=== PATIENT | female | born 1970 | race African-American/Black ===

== ENCOUNTER 2016-08-12 21:58 | Observation (INO) ==
[2016-08-13] MEDS ORDERED: LORazepam 2 MG/1 ML VIAL IV STA (00:28)
[2016-08-13] MEDS ORDERED: ASPIRIN CHEW 81 MG TABLET PO STA (00:29)
[2016-08-13 00:30] LABS: Basophils # 0.1 10*3/uL (0.0-0.2); Basophils % 0.8 % (0.0-0.8); Eosinophils # 0.2 10*3/uL (0.0-0.87); Hematocrit 37.5 VOL% (35.7-47.0); Hemoglobin 13.4 GM/DL (12.0-16.0); Immature Granulocytes % 0.3 %; Immature Granulocytes Absolute 0.02 #; Lymphocytes # 2.1 10*3/uL (1.4-4.0); Lymphocytes % 28.4 % (21.3-54.2); Mean Corpuscular HGB Conc 35.7 GM/DL (32-36); Mean Corpuscular Hemoglobin 32 PG (27-34); Mean Corpuscular Volume 90.8 FL (87-102); Monocytes # 0.6 10*3/uL (0.11-0.8); Monocytes % 7.6 % (1.7-12.7); Neutrophils # 4.3 10*3/uL (1.4-7.4); Neutrophils % 59.9 % (38.7-73.9); Platelet Count 326 T/CUMM (130-400); Red Blood Count 4.13 MC/CUMM (3.8-5.5); Red Cell Distribution Width 11.8 % (9.3-17.3); White Blood Count 7.2 T/CUMM (4-12)
[2016-08-13] MEDS ORDERED: ASPIRIN CHEW 81 MG TABLET PO ONE (00:31)
[2016-08-13] MEDS ORDERED: LORazepam 2 MG/1 ML VIAL ONE (00:31)
[2016-08-13 00:42] LABS: Barbiturates Screen,Urine Negative (Negative); Benzodiazepines Screen,Urine Negative (Negative); Cannabinoid Screen,Urine Negative (Negative); Opiate Screen,Urine Negative (Negative); Phencyclidine Screen,Urine Negative (Negative)
[2016-08-13 00:46] LABS: Apearance,Urine CLEAR (Clear); Bacteria,Urine Occasional /HPF (Few); Bilirubin,Urine Negative (Negative); Blood, Urine Negative (Negative); Glucose,Urine (UA) Negative (Negative); Ketones,Urine Negative (Negative); Mucus,Urine Occasional /LPF (Occasional); Nitrite,Urine Negative (Negative); Protein,Urine Negative; RBC,Urine 2 /HPF (0-4); Squamous Epithelial Cell,Urine Occasional /HPF (0-10); Urine Color Yellow (Yellow); Urine Urobilinogen < 2.0 EU/DL (0.2-1.0); WBC,Urine <1 /HPF (0-6)
[2016-08-13 00:52] LABS: Blood Urea Nitrogen 11 MG/DL (7-18); Calcium 9.2 MG/DL (8.5-10.1); Glucose 149 MG/DL (74-106); Magnesium 2.2 MG/DL (1.8-2.4); Osmolality,Calculated 274.8 MOS/KG (273-304); Potassium 3.3 MMOL/L (3.5-5.1); Sodium 137 MMOL/L (136-145); Troponin I Only < 0.015 NG/ML (0.00-0.045)
--- NOTE | 2016-08-13 01:20 | Emergency Department Note ---
I, Eileen Pizarro, am scribing for, and in the presence of, Juan Wright MD 00:25 . Kyle Perez Hans, MD, personally performed the services described in this documentation, ascribed by Eileen Pizarro in my presence, and it is both accurate and complete . Arrival - Arrival Chief Complaint: Non-Specific Stated Complaint: tight chest numbness in left arm sob ED Nursing Triage Note: patient c/o numbess to left arm, "shaky feeling" and tightness across her chest. history of anxiety but these s/s are worse than her usual. Mode of Arrival: Wheelchair Limitations: No Limitations Source: Patient Time Seen by Provider: 08/13/16 00:11 - History of Present Illness HPI Narrative: Pt is a 45 y/o female that came to the ED with c/o left arm numbness that has been intermediate for about 3 hours. Pt has associated sxs of tightness in the chest, "shaking" in her left arm, weakness in left arm, and palpitations but denies nausea, diaphoresis, neck pain, slurred speech, vision change, or pain. Pt states the numbness radiates to her left trunk. Pt reports she does not have pain just the numbness or tingling feeling. Pt states the numbness did scare her. She reports she has a Hx of panic attacks and anxiety but states this does not feel like either. Pt describes the numbness as "it feels like when you go to the dentist." Pt reports she did take an aspirin earlier today but is unaware of the dosage. Pt is unaware if she has a PFHx of heart disease due to being adopted. Pt denies tobacco use. No other complaints/pain in ED. Onset (ago): hour(s) Consistency: intermittent Severity: mild, moderate Severity scale (1-10): 4 Quality: other Date of Last Menstrual Period: ablasion Allergies/Adverse Reactions: Allergies Allergy/AdvReac Type Severity Reaction Status Date / Time No Known Allergies Allergy Unverified 08/12/16 22:05 Review of System - Review of System 12 point system: reviewed and no additional remarkable complaints except as stated - Review of System Constitutional: Present: weakness (weakness in the left arm). Absent: chills, diaphoresis, fever Eyes: Absent: vision change Respiratory: Absent: cough Cardiovascular: Present: palpitations, other (chest tightness). Absent: chest pain Gastrointestinal: Absent: abdominal pain, nausea, vomiting Musculoskeletal: Absent: arm pain, back pain, leg pain, neck pain Neurological: Present: numbness (numbness in the left arm that radiates to the left trunk). Absent: headache Psychiatric: Absent: anxiety Medical,Surgical,& Family Hx - Medical History Cardio: History of: Hypertension Psychological: History of: Anxiety Disorders - Social History Smoking Status: Never smoker Frequency of Alcohol Use: Rarely Type of Drug Use: None Exam Vital Signs: Vital Signs Temperature 97.1 F L 08/13/16 00:47 Pulse Rate 110 H 08/13/16 00:47 Respiratory Rate 22 08/13/16 00:47 Blood Pressure 166/106 08/13/16 00:47 O2 Sat by Pulse Oximetry 100 08/12/16 22:01 - General General appearance: alert, in no apparent distress - Head Head exam: Present: atraumatic, normocephalic - Eye Eye exam: Present: PERRL, EOMI - ENT ENT exam: Present: mucous membranes moist. Absent: mucous membranes dry - Neck Neck exam: Present: full ROM. Absent: tenderness - Chest Chest inspection: Present: symmetric chest wall rise. Absent: tenderness - Respiratory Respiratory exam: Present: normal lung sounds bilaterally. Absent: respiratory distress - Cardiovascular Cardiovascular exam: Present: normal rhythm, tachycardia, normal heart sounds - Abdominal Exam Abdominal exam: Present: soft. Absent: tenderness - Extremities Exam Extremities exam: Present: full ROM. Absent: tenderness - Back Exam Back exam: Present: full ROM. Absent: tenderness - Neurological Exam Neurological exam: Present: alert, oriented X3, CN II-XII intact. Absent: motor sensory deficit - Psychiatric Psychiatric exam: Present: normal affect, normal mood - Skin Skin exam: Present: warm, dry Course Course Narrative: This patient was evaluated with chest x-ray, EKG, and lab work as well as urinalysis. Her EKG showed some nonspecific T-wave changes but nothing diagnostic of ST segment elevation or depression. Her troponin was negative. I discussed her care with Dr. Hagen who is covering for Dr. Paez and agreed to admit her to telemetry to trend her enzymes and EKGs and get a cardiology evaluation in the morning. She had normal palpable pulses in both wrists and there was no concern for aortic dissection and her d-dimer was negative so a PE study was not pursued. There is low clinical suspicion for this. Results - Labs CBC & BMP: 08/13/16 00:12 08/13/16 00:12 Lab Results: I have reviewed the patients labs Labs: Laboratory Tests 08/13/16 00:17 Urine Color Yellow Urine Appearance Clear Urine pH 7.0 Ur Specific [place] 1.010 Urine Protein Negative Urine Glucose (UA) Negative Urine Ketones Negative Urine Blood Negative Urine Nitrate Negative Urine Bilirubin Negative Urine Urobilinogen < 2.0 H Urine Leukocytes Negative Urine RBC 2 Urine WBC <1 Ur Squamous Epith Cells Occasional Urine Bacteria Occasional Urine Mucus Occasional Urine Test Negative Laboratory Tests 08/13/16 00:12 D-Dimer, Quantitative <= 0.5 Laboratory Tests 08/13/16 00:12 Potassium 3.3 L Creatinine 1.10 H Glucose 149 H Disposition Case discussed with: patient, patient's family Disposition: Still a Patient Condition: Stable Time of Disposition: 01:20
[2016-08-13] MEDS ORDERED: LABETALOL 20 MG/4 ML SYRINGE IV PRN (02:28)
[2016-08-13] MEDS ORDERED: PROMETHAZINE 25 MG/1 ML VIAL IM PRN (02:28)
[2016-08-13] MEDS ORDERED: ONDANSETRON 4 MG/2 ML VIAL IV PRN (02:28)
[2016-08-13] MEDS ORDERED: MAGNESIUM SULF RIDER 4 GM in PREMIX 1 EACH IV PRN (02:28)
[2016-08-13] MEDS ORDERED: MORPHINE 2 MG/1 ML SYRINGE IV PRN (02:28)
[2016-08-13] MEDS ORDERED: MAGNESIUM SULF RIDER 2 GM in PREMIX 1 EACH IV PRN (02:28)
--- NOTE | 2016-08-13 06:58 | XRay Report ---
XR chest 1V portable Indication: Chest pain Comparison: Chest x-ray dated July 20, 2010 Technique: Single frontal view of the chest Findings: Heart size appears within normal limits. No focal consolidation, pleural effusion, or pneumothorax. Minimal linear right basilar atelectasis. Osseous and surrounding soft tissue structures appear grossly unchanged. IMPRESSION: No acute cardiopulmonary process demonstrated. PROCEDURE INTERPRETED AT [facility] DEPARTMENT OF RADIOLOGY Final Report Signed by: Dr Axel Stewart
[2016-08-13] MEDS ORDERED: clonazePAM 0.5 MG TABLET PO PRN (08:25)
--- NOTE | 2016-08-13 08:26 | EKG Report ---
Stationary ECG Study [facility] ER Test Date: 08/13/2016 1:19:03 AM Pat Name: ROMEL RIVERA Department: Room: 278 Gender: F Steeple Jack: : 1970 Requested by: Juan Wright Order Number: [id number] Reading MD: CHLOÉ MOJICA Intervals [place] Rate: 116 P: 76 CO: 120 QRS: 71 QRSD: 77 T: 26 QT: 341 QTc: 410 Interpretive Statements SINUS TACHYCARDIA at 116 bpm NONSPECIFIC T-WAVE ABNORMALITY ABNORMAL RHYTHM ECG Electronically Signed On 08-16-16 16:16:15 CDT by CHLOÉ MOJICA [email or web address]
--- NOTE | 2016-08-13 08:30 | Family Practice History&Phys ---
Assessment and Plan (1) Chest pain unknown etiology Status: Acute Assessment and plan: Patient's chest pain is atypical in nature. Isoenzymes EKGs are stable. In view of the degree of symptoms will consult cardiology and evaluate further Current Visit: Yes (2) Hypertension Status: Chronic Assessment and plan: Stable at present Current Visit: Yes (3) History of panic attacks Status: Chronic Assessment and plan: History of recurrent panic attacks. There possibly was a anxiety component to the episode which she was admitted for. Current Visit: Yes (4) Hypothyroid Status: Chronic Assessment and plan: Stable at present Current Visit: Yes History of Present Illness Chief complaint: Chest pain, weakness, and left shoulder pain History of present illness: Ms. Kaur is a 45 year old female Pt is a 45 y/o female that came to the ED with c/o left arm numbness that has been intermediate for about 3 hours. Pt has associated sxs of tightness in the chest, "shaking" in her left arm, weakness in left arm, and palpitations but denies nausea, diaphoresis, neck pain, slurred speech, vision change, or pain. Pt states the numbness radiates to her left trunk. Pt reports she does not have pain just the numbness or tingling feeling. Pt states the numbness did scare her. She reports she has a Hx of panic attacks and anxiety but states this does not feel like either. Pt describes the numbness as "it feels like when you go to the dentist." Pt reports she did take an aspirin earlier today but is unaware of the dosage. Patient states that once the symptoms began she became weaker and very lightheaded. She was brought to the emergency room and inferior degree of symptoms admitted for further evaluation therapy Home Medications Medication Instructions Recorded Confirmed Type Duloxetine HCl [Cymbalta] 60 mg PO DAILY 08/13/16 08/13/16 History Levothyroxine Tab [Synthroid Tab] 50 mcg PO DAILY@0700 08/13/16 08/13/16 History Propranolol LA Cap [Inderal LA Cap] 60 mg PO DAILY 08/13/16 08/13/16 History Topiramate [Topamax] 50 mg PO BID 08/13/16 08/13/16 History clonazePAM [Klonopin] 1 mg PO BID PRN 08/13/16 08/13/16 History hydroCHLOROthiazide 12.5 mg PO DAILY 08/13/16 08/13/16 History [Hydrochlorothiazide] Allergies Allergy/AdvReac Type Severity Reaction Status Date / Time No Known Allergies Allergy Unverified 08/12/16 22:05 Medical,Surgical,& Family Hx - Medical History Cardio: History of: Hypertension Psychological: History of: Anxiety Disorders Neurology: History of: Migraine Endocrine: History of: Thyroid Disorder - Family History Family History: Reports;: Family Heart Disease - Social History Smoking Status: Never smoker Frequency of Alcohol Use: Rarely Type of Drug Use: None Marital Status: Lives With:: Spouse Functional capacity: independent ambulation Exam - Constitutional Vitals: Period Temp Pulse Resp BP Sys/Mtz Pulse Ox Last 24 Hr 97.3 F-97.3 F 90-95 18-22 116-127/68-78 99-100 General appearance: no acute distress - Head Head exam: Present: normal inspection - Eye Pupils: Present: MARVA - ENT ENT exam: Present: normal exam - Neck Neck exam: Present: normal inspection - Respiratory Respiratory exam: Present: clear to auscultation bilaterally - Cardiovascular Cardiovascular exam: Present: regular rate and rhythm - GI/Abdominal GI/Abdominal exam: Present: normal bowel sounds, soft - Extremities Exam Extremities exam: Present: normal inspection - Back Exam Back exam: Present: normal inspection - Neurological Exam Neurological exam: Present: alert - Psychiatric Psychiatric exam: Present: normal affect - Skin Skin exam: Present: normal color Results - Labs CBC & BMP: 08/13/16 00:12 08/13/16 00:12 Quality Measures - Stroke Symptom Onset Unknown: No
--- NOTE | 2016-08-13 09:05 | CT Report ---
CT head/brain wo con Indication: Left arm numbness, weakness Comparison: None Technique: Multiple axial tomographic images of the brain were obtained without the use of intravenous contrast. Findings: Midline structures are nondisplaced. There is no acute intracranial hemorrhage or evidence of hydrocephalus. Paranasal sinuses and mastoid air cells are clear. IMPRESSION: No acute intracranial abnormality demonstrated. The CT exam was performed using one or more of the following dose reduction techniques: Automated exposure control, adjustment of the mA and/or kV according to patient size, or use of iterative reconstruction technique. PROCEDURE INTERPRETED AT [facility] DEPARTMENT OF RADIOLOGY Final Report Signed by: Dr Axel Stewart
--- NOTE | 2016-08-13 09:15 | Cardiology Consult Note ---
<Rajni Bingham E - Last Filed: 08/13/16 09:01> Assessment and Plan - Time spent with patient Time spent with patient: Greater than 30 minutes (1) Thyromegaly Status: Acute Assessment and plan: SEE PLAN OF CARE LISTED BELOW Current Visit: Yes (2) Left arm weakness Status: Acute Assessment and plan: SEE PLAN OF CARE LISTED BELOW Current Visit: Yes (3) Chest pain unknown etiology Status: Acute Assessment and plan: SEE PLAN OF CARE LISTED BELOW Current Visit: Yes (4) Hypertension Status: Chronic Assessment and plan: SEE PLAN OF CARE LISTED BELOW Current Visit: Yes (5) History of panic attacks Status: Chronic Assessment and plan: SEE PLAN OF CARE LISTED BELOW Current Visit: Yes History of Present Illness - Data of Consult Patient: new to practice Consult date: 08/13/16 Requesting Physician: Willem Hagen Primary care physician: Aaron Paez - Consult Narrative Reason for consult: chest pain History of present illness: CARROT HARVESTER: DR. OSN ([facility]) Ms. Kaur, 45BF, without a prior cardiac history has risk factors to include the following: hypertension. 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 Patient presented to the emergency department last evening after experiencing left arm numbness, tingling and weakness. This initially began approximately 3- 4 hours before she sought medical attention. She felt a tingling sensation from her left mid forearm down to her fingers. She had been laying on the left side when this occurred. She positioned herself away from the left side and moved the arm around in order to hopefully improve the discomfort. It did not improve. She states she then became short of breath because "I panicked". She states once she calmed herself down, she felt as if she should be evaluated in the emergency department. She then began to experience left arm weakness which lasted approximately 3 hours. This is resolved and has not reoccurred. She was seen in the emergency department and has been housed on our telemetry unit overnight. Patient denies chest pain, heaviness, tightness or shortness of breath. She tells me she is very active. She exercises routinely riding her Peloton Bike most days. Of note, patient is moderately tender to touch in the left sternocleidomastoid area. Patient is usually active, exercising routinely and reports she can perform the activities without symptoms of angina. Cardiology was consulted for complaints of chest pain however patient insists she has none. Cardiac biomarkers are negative, EKG unremarkable. Initially, on arrival , she did have sinus tachycardia (heart rate around 110 bpm) which has since resolved. I will order CT of her head without contrast this morning. Also, carotid ultrasound. Bilobular enlargement of her thyroid is noted and I will order a thyroid ultrasound as well. Potassium is slightly low at 3.3 and I will add replacement this morning. Of note, glucose level is 149. She denies a history of diabetes and this will need to be followed up by her primary care provider on outpatient basis. Unfortunately, patient does not have knowledge of her family medical history she was adopted. Patient may benefit from echocardiogram. This may be scheduled at discharge at [facility]. ASSESSMENT/PLAN: 1. CHEST PAIN - denies history of chest pain, heaviness or tightness. Cardiac biomarkers are negative, EKG is unremarkable. 2. LEFT ARM NUMBNESS, TINGLING AND WEAKNESS - see above for studies which have been ordered. 3. HYPERTENSION - usually well controlled. Managed by Dr. Aaron Paez. 4. HISTORY OF ANXIETY - continue current medications 5. THYROMEGALY - thyroid ultrasound this morning CC: Aaron Paez MD - Home Medications and Allergies Home Medications: Home Medications Medication Instructions Recorded Confirmed Type Duloxetine HCl [Cymbalta] 60 mg PO DAILY 08/13/16 08/13/16 History Levothyroxine Tab [Synthroid Tab] 50 mcg PO DAILY@0700 08/13/16 08/13/16 History Propranolol LA Cap [Inderal LA Cap] 60 mg PO DAILY 08/13/16 08/13/16 History Topiramate [Topamax] 50 mg PO BID 08/13/16 08/13/16 History clonazePAM [Klonopin] 1 mg PO BID PRN 08/13/16 08/13/16 History hydroCHLOROthiazide 12.5 mg PO DAILY 08/13/16 08/13/16 History [Hydrochlorothiazide] Allergies/Adverse Reactions: Allergies Allergy/AdvReac Type Severity Reaction Status Date / Time No Known Allergies Allergy Unverified 08/12/16 22:05 Review of systems: REVIEW OF SYSTEMS: - Constitutional Constitutional: Denies fatigue. Absent: syncope, anorexia, night sweats - EENT Eyes: Absent: blurry vision, loss of vision, diplopia Ears: Absent: decreased hearing, ear pain, ear discharge - Cardiovascular Cardiovascular: Denies chest pain with exertion, dyspnea on exertion, edema, palpitations. Absent: chest pain with deep breath, claudication - Respiratory Respiratory: Denies: RANDOLPH, cough. Absent: wheezing, hemoptysis, change in phlegm color - Gastrointestinal Gastrointestinal: Denies constipation. Absent: abdominal pain, hematemesis, hematochezia, melena, change in bowel habits, nausea - Genitourinary Genitourinary: Absent: difficulty urinating, dysuria, urinary hesitancy, flank pain - Musculoskeletal Musculoskeletal: Left arm tingling Absent: joint swelling, muscle cramps, muscle weakness - Neurological Neurological: Present: See HPI. Normal gait without frequent falls. Absent: dizziness - Psychiatric Psychiatric: Absent: anxiety, depression, difficulty concentrating - Endocrine Endocrine: Denies: fatigue. Absent: cold intolerance, heat intolerance, polyuria, polyphagia, polydipsia - Hematologic/Lymphatic Hematologic/Lymphatic: Present: easy bruising. Absent: easy bleeding -Integumentary Integumentary: Absent: lesions, rashes, skin breakdown Medical,Surgical,& Family Hx - Medical History Cardio: History of: Hypertension No history of: Cardiac Dysrhythmia, CAD Psychological: History of: Anxiety Disorders Neurology: History of: Migraine Endocrine: History of: Thyroid Disorder - Family History Family History: Reports;: Family Heart Disease - Social History Smoking Status: Never smoker Have you smoked in the last 12 months: No Frequency of Alcohol Use: Rarely Type of Drug Use: None Marital Status: Lives With:: Spouse Functional capacity: independent ambulation Physical Examination Vital Signs Temp Pulse Resp BP Pulse Ox 97.1 F L 110 H 22 166/106 100 08/12/16 22:01 08/12/16 22:01 08/12/16 22:01 08/12/16 22:01 08/12/16 22:01 General: [Appears well with no apparent distress.] [Pleasant and cooperative. ] [Appears comfortable.] HEENT: [PERRL, normocephalic, atraumatic. Mucous membranes moist. No jaundice noted. Conjunctiva moist and clear, sclerae anicteric] Neck: No JVD/HJR, bilobular enlargement of the thyroid noted, or lymphadenopathy noted. No carotid bruit appreciated Cardiac: [Regular rate and rhythm.] [No murmur rub or gallop.] Lungs: [Clear to auscultation without accessory muscle use to assist the respiratory pattern.] Not requiring oxygen Abdomen: Soft, bowel sounds normoactive. Nontender and nondistended. No abdominal bruit or thrill noted. No masses noted. Musculoskeletal: No fluid collection. Decreased range of motion is noted. Extremities: No clubbing, cyanosis noted. [ No edema noted.] Upper extremity pulses 2+. Lower extremity pulses 2+. Capillary refill less than 3 seconds. Skin: No unusual lesions or rashes. No skin breakdown appreciated. Neuro: Awake, alert and oriented 3. Moves all extremities well without hemiparesis or paralysis. No essential tremor is appreciated. Result/EKG - Labs CBC & BMP: 08/13/16 00:12 08/13/16 00:12 Lab Results: I have reviewed the past 24 hour labs Labs: Laboratory Results - last 24 hr 08/13/16 Unknown Free T4 1.10 - Diagnostic Findings Procedure: Chest x-ray: report reviewed by me - EKG EKG results: interpreted by wv EKG shows: sinus rhythm Quality Measures - Stroke Symptom Onset Unknown: No <Mathew Son - Last Filed: 08/13/16 13:19> History of Present Illness - Consult Narrative History of present illness: The patient personally interviewed and examined chart reviewed. I discussed this case with Rajni Bingham NP. I agree with the assessment and evaluation and plan. In summation and addition Ms. Kaur is a 45 year old female who presented with some left arm numbness. She denies having any cardiac symptoms of chest pain shortness of breath wheezing asthma peripheral edema. She has no prior cardiac history. Her troponin is nondetectable. ECG is normal sinus rhythm and unremarkable. Her lipids are elevated. Exam is as noted and patient certainly is in no distress, lungs are clear, cardiovascular is regular rate and rhythm without murmur., Abdomen soft nontender, neurologic grossly intact. At this time this patient needs no further cardiac evaluation. We will sign off at this time if you have any further questions or we can be of further service please feel free to call. Thank you for the consult. CC: Aaron Paez MD Physical Examination Vital Signs Temp Pulse Resp BP Pulse Ox 97.1 F L 110 H 22 166/106 100 08/12/16 22:01 08/12/16 22:01 08/12/16 22:01 08/12/16 22:01 08/12/16 22:01 Result/EKG - Labs CBC & BMP: 08/13/16 00:12 08/13/16 00:12 Labs: Laboratory Results - last 24 hr 08/13/16 08/13/16 08/13/16 01:51 01:51 Unknown Triglycerides 147 Cholesterol 299 H LDL Cholesterol 209.0 VLDL Cholesterol 29.4 HDL Cholesterol 70 H Heart Disease Risk Ratio 4.27 Free T4 1.10 TSH 3rd Generation 1.510
[2016-08-13 09:34] LABS: Risk Ratio 4.27; VLDL CHOLESTEROL 29.4 MG/DL
--- NOTE | 2016-08-13 10:23 | EKG Report ---
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
[2016-08-13] MEDS: TOPIRAMATE 25 MG TABLET PO SCH ×2 (10:38→21:18)
[2016-08-13] MEDS: hydroCHLOROthiazide 12.5 MG CAPSULE PO SCH (10:38)
[2016-08-13] MEDS: DULoxetine 30 MG CAPSULE PO SCH (10:38)
[2016-08-13] MEDS: PROPRANOLOL LA 60 MG CAPSULE PO SCH (10:38)
[2016-08-13] MEDS: POTASSIUM CHLORIDE 10 MEQ TABLET PO SCH ×2 (10:39→21:18)
--- NOTE | 2016-08-13 10:44 | Ultrasound Report ---
US carotid duplex BI Indication: Left arm weakness. Comparison: None. Technique: Multiple longitudinal and transverse real-time sonographic images of the bilateral carotid arterial systems are obtained with grayscale, spectral, and color Doppler analysis. Findings: Peak systolic velocities within the right CCA, proximal ICA, and distal ICA are 90, 58, and 87 cm/s respectively. Peak systolic velocities within the left CCA, proximal ICA, and distal ICA are 79, 44, and 99 cm/s respectively. ICA/CCA ratios on the right and left are 1.0 and 1.3 respectively. Antegrade flow demonstrated within the bilateral vertebral arteries. Grayscale imaging demonstrates mild bilateral atherosclerotic plaque. IMPRESSION: No convincing sonographic evidence of significant (50% or greater) narrowing of either cervical internal carotid artery. NASCET criteria utilized. PROCEDURE INTERPRETED AT [facility] DEPARTMENT OF RADIOLOGY Final Report Signed by: Dr Axel Stewart
--- NOTE | 2016-08-13 11:55 | Ultrasound Report ---
US thyroid Indication: Bilobular enlargement. Comparison: Thyroid ultrasound dated January 22, 2008. Technique: Multiple longitudinal and transverse real-time sonographic images of the thyroid are obtained. Findings: The right lobe of the thyroid measures 5.3 x 1.8 x 1.6 cm. The left lobe of the thyroid measures 4.6 x 1.5 x 1.3 cm. The thyroid isthmus measures 0.35 cm in thickness. No discrete nodule demonstrated. IMPRESSION: Unremarkable thyroid ultrasound. PROCEDURE INTERPRETED AT [facility] DEPARTMENT OF RADIOLOGY Final Report Signed by: Dr Axel Stewart
[2016-08-14 04:44] LABS: Basophils # 0.1 10*3/uL (0.0-0.2); Basophils % 0.9 % (0.0-0.8); Eosinophils # 0.3 10*3/uL (0.0-0.87); Hematocrit 36.9 VOL% (35.7-47.0); Hemoglobin 12.8 GM/DL (12.0-16.0); Immature Granulocytes % 0.3 %; Immature Granulocytes Absolute 0.02 #; Lymphocytes # 2.4 10*3/uL (1.4-4.0); Mean Corpuscular HGB Conc 34.7 GM/DL (32-36); Mean Corpuscular Hemoglobin 32 PG (27-34); Mean Corpuscular Volume 92.9 FL (87-102); Mean Platelet Volume 10.2 FL (9.6-12.0); Monocytes # 0.6 10*3/uL (0.11-0.8); Monocytes % 8.7 % (1.7-12.7); Neutrophils % 47.1 % (38.7-73.9); Platelet Count 313 T/CUMM (130-400); Red Blood Count 3.97 MC/CUMM (3.8-5.5); Red Cell Distribution Width 12.1 % (9.3-17.3); White Blood Count 6.3 T/CUMM (4-12)
[2016-08-14 05:13] LABS: Calcium 8.6 MG/DL (8.5-10.1); Magnesium 2.2 MG/DL (1.8-2.4); Osmolality,Calculated 272.8 MOS/KG (273-304)
[2016-08-14] MEDS ORDERED: LEVOTHYROXINE 50 MCG TABLET PO SCH (07:00)
[2016-08-14] MEDS: PROPRANOLOL LA 60 MG CAPSULE PO SCH (08:50)
[2016-08-14] MEDS: hydroCHLOROthiazide 12.5 MG CAPSULE PO SCH (08:50)
[2016-08-14] MEDS: DULoxetine 30 MG CAPSULE PO SCH (08:50)
[2016-08-14] MEDS: TOPIRAMATE 25 MG TABLET PO SCH (08:50)
[2016-08-14] MEDS: POTASSIUM CHLORIDE 10 MEQ TABLET PO SCH (08:50)
--- NOTE | 2016-08-14 13:02 | Discharge Summary ---
Hospital Course - Hospital Course Hospital Course: This is a 45 year old female patient of Dr. Aaron Paez with history of anxiety, HTN, hypothyroid, headaches, who presented to ER with palpitations, left arm tingling and weakness, chest pain, and has been ruled out for cardiac issues. She is adopted, and family history is unknown. She is feeling better and ready to go home. She will be discharged today to follow up with Dr. Paez in clinic next week. Diagnosis - Discharge Diagnosis (1) Chest pain unknown etiology Status: Resolved (2) Hypertension Status: Chronic (3) History of panic attacks Status: Chronic (4) Hypothyroid Status: Chronic (5) Left arm weakness Status: Resolved (6) Hyperlipidemia Status: Chronic Discharge Plan - Discharge Data Disposition: Disch To Home/Self Care Condition at Discharge: Stable Discharge Diet: low fat, low cholesterol Activity: increase activity as tolerated - Discharge Medications New Potassium Chloride Cap/Tab [K Dur] 10 meq PO BID #60 tablet Continue hydroCHLOROthiazide [Hydrochlorothiazide] 12.5 mg PO DAILY Levothyroxine Tab [Synthroid Tab] 50 mcg PO DAILY@0700 Duloxetine HCl [Cymbalta] 60 mg PO DAILY Propranolol LA Cap [Inderal LA Cap] 60 mg PO DAILY clonazePAM [Klonopin] 1 mg PO BID PRN PRN Reason: Anxiety Topiramate [Topamax] 50 mg PO BID - Follow Up or Referral Follow Up: Aaron Paez MD [Primary Care Provider] - - Forms/Instructions Additional Discharge Instructions: She has an appointment early next week with Dr. Paez. Encourage her to pursue a low fat diet and regular exercise. Good HDL, but significantly elevated LDL to discuss with Dr. Paez in next week's appointment. Repeat fasting lipid panel at [facility] in 3-4 months. She is taking medication which may be affecting the LDL. Also, uncertain whether family history of heart disease. Exam - Constitutional Vitals: Period Temp Pulse Resp BP Sys/Mtz Pulse Ox Last 24 Hr 96.6 F-97.8 F 71-84 16-18 95-127/50-72 97-99 General appearance: no acute distress - Head Head exam: Present: normocephalic - Eye Eye exam: Present: EOMI - Respiratory Respiratory exam: Present: clear to auscultation bilaterally. Absent: rhonchi, wheezes - Cardiovascular Cardiovascular exam: Present: regular rate and rhythm - Extremities Exam Extremities exam: Absent: edema - Neurological Exam Neurological exam: Present: alert, oriented X3, CN II-XII intact - Psychiatric Psychiatric exam: Present: normal mood - Skin Skin exam: Present: warm, dry Discharge Results Procedures and tests throughout hospitalization: Pending Orders 08/15/16 04:00 BMP w/ Mg [Basic Metabolic Panel w/Mg] IN AM 08/16/16 04:00 BMP w/ Mg [Basic Metabolic Panel w/Mg] IN AM Labs on day of discharge: Labs from last 24 hours 08/14/16 08/14/16 04:06 04:06 WBC 6.3 RBC 3.97 Hgb 12.8 Hct 36.9 MCV 92.9 MCH 32 MCHC 34.7 RDW 12.1 Plt Count 313 MPV 10.2 Neut % (Auto) 47.1 Lymph % (Auto) 38.0 [place] % (Auto) 8.7 Eos % (Auto) 5.0 Baso % (Auto) 0.9 H Neut # (Auto) 3.0 Lymph # (Auto) 2.4 [place] # (Auto) 0.6 Eos # (Auto) 0.3 Baso # (Auto) 0.1 Immature Gran % 0.3 Nucleated RBC % 0.0 Immature Gran # 0.02 Nucleated RBCs # 0.00 Sodium 137 Potassium 4.0 Chloride 104 Carbon Dioxide 24 Anion Gap 13.0 BUN 11 Creatinine 0.80 GFR Calculation 111 BUN/Creatinine Ratio 13.00 Glucose 108 H Calculated Osmolality 272.8 L Calcium 8.6 Magnesium 2.2 - Imaging and Cardiology Procedure: Chest x-ray: image reviewed by me, report reviewed by me, CT: report reviewed by me (head/brain CT), Ultrasound: report reviewed by me (carotid ultrasound) DS: Provider Date of admission: 08/13/16 01:13 Primary care physician: Aaron Paez MD Attending physician on admission: Aaron Paez MD Consults: 08/13/16 02:28 Consult to Physician [CONS] Routine Comment: Consulting Provider: Consult to Specialist Group: Cardiology When should Consulting Provider be notified: In am Person Notified: CIS Date Notified: 08/13/16 Time Notified: 07:35 08/13/16 08:04 Consult to Physician [CONS] Routine Comment: 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
[2016-08-14 13:12] VITALS: BP 121/68
--- NOTE | 2016-08-16 16:19 | EKG Report ---
Stationary ECG Study [facility] Test Date: 08/13/2016 7:51:29 AM Pat Name: ROMEL RIVERA Department: Room: 278 Gender: F Mobile Marketing Specialist: : 1970 Requested by: Juan Wright Order Number: [id number] Reading MD: CHLOÉ MOJICA Intervals [place] Rate: 87 P: 77 [place]: 154 QRS: 71 QRSD: 73 T: 29 QT: 374 QTc: 419 Interpretive Statements SINUS RHYTHM at 87 bpm NONSPECIFIC T-WAVE ABNORMALITY Electronically Signed On 08-16-16 16:17:32 CDT by CHLOÉ MOJICA [email or web address]
== END 2016-08-14 14:30 | disposition home or self-care (01) ==
LOC: N.EDINP 21:58 → N.ED 21:58 → N.TELES 08-13 02:12
PROVIDERS: ADMIT Family Medicine; ATTEND Family Medicine